=== PATIENT | female | born 2000 | race Caucasian/White ===

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

== ENCOUNTER 2022-07-12 14:27 | Emergency (ER) | payer MEDICAID ==
[~2022-07-12] VITALS: Ht 175.3 cm; Wt 92.3 kg
[2022-07-12 15:00] VITALS: BP 141/71
[2022-07-12 16:35] LABS: Urine Bacteria NONE SEEN /hpf (None Seen); Urine Blood 3+ /uL (Negative); Urine WBC 934 /hpf (0 - 5); Urine WBC Clumps PRESENT /hpf (None Seen)
[2022-07-12] MEDS ORDERED: PHENAZOPYRIDINE HCL 100 MG TAB PO ONE (16:45)
[2022-07-12] MEDS ORDERED: cefTRIAXone SOD 1,000 MG VL IM ONE (16:45)
[2022-07-12] MEDS ORDERED: PHEN200T16 PO (16:49)
[2022-07-12] MEDS ORDERED: BACDST PO (16:49)
== END 2022-07-12 17:18 | disposition home or self-care (01) ==
LOC: ER 14:27
DX: N39.0 Urinary tract infection, site not specified (principal); Z79.899 Other long term (current) drug therapy
CPT/HCPCS: 81001; 81025; 96372; 99283; J0696

== ENCOUNTER 2023-01-07 10:20 | Emergency (ER) | payer MEDICAID ==
[~2023-01-07] VITALS: Ht 170.2 cm; Wt 72.7 kg
[~2023-01-07 10:20] MED LIST changes: +BACDST PO; +PHEN-922 PO
[2023-01-07 10:32] VITALS: PULSE 68; RESP 12; TEMP 98; O2SAT 98
[2023-01-07 11:01] LABS: Basophils # (auto) 0 10 ^3/uL (0-0.2); Basophils % (auto) 0.3 % (0.0-2.0); Eosinophils # (auto) 0 10 ^3/uL (0-0.8); Hematocrit 46.6 % (36.0-46.0); Hemoglobin 15.3 g/dL (12.2-16.2); Lymphocytes # (auto) 1.2 10 ^3/uL (0.4-5.4); Mean Corpuscular Hemoglobin 30.1 pg (28.0-32.0); Mean Corpuscular Volume 91.4 fL (80.0-100.0); Monocytes # (auto) 0.4 10 ^3/uL (0-1.3); Monocytes % (auto) 9.2 % (0.0-12.0); Neutrophils # (auto) 2.8 10 ^3/uL (1.6-8.6); Neutrophils % (auto) 63.5 % (37.0-80.0); Nucleated Red Blood Cells % 0.1 %; Red Blood Cells 5.09 10^6/uL (4.0-5.20); Red Cell Distribution Width 12.5 % (11.8-14.3); White Blood Cell 4.4 10^3/uL (4.4-10.8)
[2023-01-07 11:21] LABS: Albumin 4.2 g/dL (3.4-5.0); Calcium 9.1 mg/dL (8.5-10.1); Potassium 4.3 mmol/L (3.5-5.1)
[2023-01-07 11:26] LABS: BUN/Creatinine Ratio 9.5 (10.0-20.0); Bilirubin, Total 0.7 mg/dL (0.2-1.0); Total Protein 7.1 g/dL (6.4-8.2)
[2023-01-07 11:46] LABS: Urine Bacteria FEW /hpf (None Seen); Urine Blood Negative /uL (Negative); Urine Mucus FEW (None Seen); Urine Specific Gravity 1.008 (1.001-1.035); Urine WBC 10 /hpf (0 - 5)
[2023-01-07 11:55] LABS: Alcohol, Urine < 3.0 mg/dL (0-10); Amphetamine Screen, Urine NEGATIVE (NEGATIVE); Barbiturate Scree,Urine NEGATIVE (NEGATIVE); Benzodiazephine Screen, Urine NEGATIVE (NEGATIVE); Cannabinoid Screen, Urine POSITIVE (NEGATIVE); Cocaine Screen, Urine NEGATIVE (NEGATIVE)
[2023-01-07 12:03] LABS: Opiate Scree,Urine NEGATIVE (NEGATIVE); Phencyclidine Screen, Urine NEGATIVE (NEGATIVE)
[2023-01-07] MEDS ORDERED: SODIUM CHLORIDE 0.9% 1,000 ML IV ONE (12:45)
[2023-01-07] MEDS ORDERED: cefTRIAXone 1GM/50ML D5W 50 ML IV ONE (13:30)
[2023-01-07 14:30] VITALS: BP 119/77; PULSE 76; RESP 15; O2SAT 99
== END 2023-01-07 14:34 | disposition home or self-care (01) ==
LOC: EDBD 10:20 → EDUNIT# 10:20 → ER 10:20
DX: R56.9 Unspecified convulsions (principal); F41.9 Anxiety disorder, unspecified
CPT/HCPCS: 36415; 70450; 80053; 80307; 81001; 85025; 96361; 96365; 99285; J0696; J7030

== ENCOUNTER 2025-01-26 20:22 | Emergency (ER) | payer MEDICAID ==
[~2025-01-26] VITALS: Ht 175.3 cm; Wt 90.6 kg
[~2025-01-26 20:22] MED LIST changes: +ZOFR4T PO
--- NOTE | 2025-01-26 21:23 | ED.PDOC ---
GI ASSESSMENT HPI Comments 44-year-old female with a history of epilepsy, seizures, and marijuana use presents to the ED with a chief complaint of black colored stool with the associated abdominal cramping, and diarrhea. She notes that her symptoms started this morning after she noticed a dark color stool after having a bowel movement this morning, patient knows that she is also currently on her menstrual cycle. Patient also notes of having 5 seizure within 2 hours a couple of weeks ago, and being noncompliant with her epilepsy medications. Denies any headache, abdominal pain, flank pain, chest pain, nausea, vomiting, dysuria, hematuria, or any other associated symptoms, modifiers with this time. PHYSICAL EXAM: General: Awake, alert and oriented. Mild distress. Skin: Skin in warm, dry and intact. Appropriate color for ethnicity. HEENT: The head is normocephalic and atraumatic. Conjunctivae are clear without exudates or hemorrhage. Sclera is non-icteric. EOM are intact. No signs of nystagmus. Eyelids are normal in appearance without swelling or lesions. Oral mucosa is pink and moist Neck: The neck is supple with normal range of motion. No JVD. Cardiac: Heart rate and rhythm are normal. No murmurs, gallops, or rubs are auscultated. Respiratory: No signs of respiratory distress. Lung sounds are clear in all lobes bilaterally without rales, rhonchi, or wheezes. Abdominal: Abdomen is soft, non-tender without distention, guarding or rigidity. Bowel sounds are present and normoactive in all four quadrants. Extremities: Upper and lower extremities are atraumatic in appearance without deformity or edema. Neurological: The patient is awake, alert and oriented to person, place, and time with normal speech. Speech is clear. There is no facial asymmetry. Psychiatric: Appropriate mood and affect. Good judgement and insight. REVIEW OF SYSTEMS: General: No fever, no chills, or fatigue HEENT: No sore throat, no earache, no congestion, no neck pain. Cardiac: No chest pain. No palpitations. Lungs: No shortness of breath, no cough. GI: No nausea, no vomiting, no diarrhea, no constipation, no abdominal pain, black colored stool : No dysuria, frequency, or urgency. No hematuria. Musculoskeletal: No joint pain , no joint swelling, no extremity edema. Skin: No rash, no itching. Neuro: No headache, no dizziness, no weakness Chief Complaint: GI Bleed Time Seen by MD: 21:20 Primary Care Provider: SHAWN Hadley Notes: Nurses Notes, Medications, Allergies Allergies: Coded Allergies: NO KNOWN ALLERGIES (Unverified , 12/28/12) Home Meds Active Scripts Ondansetron Odt 4MG Tab (ZOFRAN PO) 4 Mg Tb, 4 MG PO Q6HP PRN, #20 TAB ODT TAB-DISSOLVE IN MOUTH, THEN SWALLOW Prov:SHERRI PRECIADO PAC 03/01/24 Phenazopyridine HCl (Phenazopyridine Hydrochlo) 200 Mg Tab, 200 MG PO TID, #6 TAB Prov:CHRISTINA LI 07/12/22 Sulfamethoxazole W/Trimethopri (Bactrim Ds Tablet) 1 Tab Tb, 1 TAB PO BID, #20 TAB Prov:CHRISTINA LI 07/12/22 Reported Medications Acetaminophen (Tylenol) 325 Mg Rc 12/28/12 Albuterol Sulfate (Ventolin Hfa) Aer 12/28/12 Information Source: Patient Mode of Arrival: Ambulatory Timing: Hours Duration: Since onset, Hours Prehospital treatment: None Quality: Aching Vomitus: None Stool: Black Severity: Mild Recent: None Recent Hx of: None Pain Location: None Modifying Factors: Nothing Associated sign and symptoms: Blood in Stool Past Medical History PAST MEDICAL HISTORY: Seizures Surgical History: Denies all surgeries SERVICE ORDER EXPEDITER History: No Pertinent SERVICE ORDER EXPEDITER History Family History Family History: Family hx of HTN, Family hx of lung barry Social History Smoker: Non-Smoker, Other Alcohol: Occasionally Drugs: Marijuana Lives In: Home Was a procedure done? Was a procedure done?: No GI differential Dx Differential Diagnosis: Appendicitis, Bowel Obstruction, Cholangitis, Cholecystitis, Constipation, Ectopic , Gastritis/PUD, Gastroenteritis, GI hemorrhage, Pancreatitis, Trauma intraabdominal, Urinary Obstruction, UTI, Urolithiasis, Dehydration, Drug toxicity, Electrolyte Imbalance, Food Poisoning, , Stress Ulcer, Kidney Stone X-Ray, Labs, Meds, VS Vital Signs Date Time Temp Pulse Resp B/P (MAP) Pulse Ox O2 Delivery O2 Flow Rate FiO2 01/27/25 00:17 58 16 100 Room Air 01/27/25 00:07 98.1 58 16 116/72 (87) 100 98.1 01/26/25 20:25 98.1 112 20 125/80 97 98.1 Lab Test 01/26/25 21:37 Range/Units White Blood Count 6.8 4.4-10.8 10^3/uL Red Blood Count 4.47 4.0-5.20 10^6/uL Hemoglobin 13.7 12.2-16.2 g/dL Hematocrit 39.7 36.0-46.0 % Mean Corpuscular Volume 88.7 80.0-100.0 fL Mean Corpuscular Hemoglobin 30.5 28.0-32.0 pg Mean Corpuscular Hemoglobin Concent 34.4 32.0-36.0 g/dL Red Cell Distribution Width 12.3 11.8-14.3 % Platelet Count 287 140-450 10^3/uL Mean Platelet Volume 8.6 6.9-10.8 fL Neutrophils (%) (Auto) 58.1 37.0-80.0 % Lymphocytes (%) (Auto) 30.5 10.0-50.0 % Monocytes (%) (Auto) 9.3 0.0-12.0 % Eosinophils (%) (Auto) 1.7 0.0-7.0 % Basophils (%) (Auto) 0.4 0.0-2.0 % Neutrophils # (Auto) 4.0 1.6-8.6 10 ^3/uL Lymphocytes # (Auto) 2.1 0.4-5.4 10 ^3/uL Monocytes # (Auto) 0.6 0-1.3 10 ^3/uL Eosinophils # (Auto) 0.1 0-0.8 10 ^3/uL Basophils # (Auto) 0 0-0.2 10 ^3/uL Nucleated Red Blood Cells 0.1 % Prothrombin Time 11.2 9.3-11.8 sec Prothrombin Time INR 1.06 0.9-1.15 Sodium Level 144 136-145 mmol/L Potassium Level 4.0 3.5-5.1 mmol/L Chloride Level 109 H 98-107 mmol/L Carbon Dioxide Level 26 20-31 mmol/L Anion Gap 9 5-15 Blood Urea Nitrogen 8 L 9-23 mg/dL Creatinine 0.85 0.550-1.02 mg/dL Glomerular Filtration Rate Calc 99 >90 mL/min BUN/Creatinine Ratio 9.4 L 10.0-20.0 Serum Glucose 86 74-106 mg/dL Calcium Level 9.3 8.7-10.4 mg/dL Time of 1ST Reevaluation: 21:50 Reevaluation 1ST: Unchanged Patient Education/Counseling: Diagnosis, Treatment, Need For Follow Up Family Education/Counseling: No Family Present SEPSIS Sepsis Screen Date sepsis recognized/suspect: Jan 26, 2025 Time Sepsis recognized/suspect: 2028 Recent Procedure: No On Antibiotic Therapy: No Respiratory Rate >20: No Heart Rate >90: No Temp<36 C (96.8 F) or >38.3 C: No SBP <90 or MAP <65 mmHG: No New Acute Mental Status Change: No Is the patient on CPAP, BIPAP,: No Physician Orders Stool Occult Blood (01/26/25 21:25) Vital Signs Date Time Temp Pulse Resp B/P (MAP) Pulse Ox O2 Delivery O2 Flow Rate FiO2 01/27/25 00:17 58 16 100 Room Air 01/27/25 00:07 98.1 58 16 116/72 (87) 100 98.1 01/26/25 20:25 98.1 112 20 125/80 97 98.1 Laboratory Tests Test 01/26/25 21:37 White Blood Count 6.8 10^3/uL (4.4-10.8) Departure 1 Departure Time of Disposition: 23:52 Impression: Primary Impression: Stool color black Additional Impression: Diarrhea Disposition: 01 HOME / SELF CARE / HOMELESS Condition: Stable Additional Instructions: ED DISCHARGE INSTRUCTIONS Instructions: Please read all instructions provided in this packet carefully. Although you have been discharged from the Emergency Department, this does not mean that you have a "clean bill of health". No definitive diagnosis for your symptoms has been made today. It is possible that you are in the process of developing a serious illness. This is why you must return to the ED without fail if any new or worsening symptoms (especially if your symptoms include bright red blood in the stool, continued black colored stool, chest pain, trouble breathing, abdominal pain, fever, headache, confusion, trouble seeing, or trouble walking) It is also very important that you see a primary care provider (PCP) within the next 3-5 days to follow up. If you are unable to get an appointment, return to the ED for re-evaluation. It is very important that you take seizure medication as prescribed. Continued untreated seizures can lead to long-term serious illness. Comments 24-year-old female with black colored stool. Abdominal exam is benign. Patient is well-appearing, nontoxic. Vital signs stable. Diagnostic results reviewed and are not urgently actionable. Patient is felt stable for discharge home. Patient advised to follow up with primary care provider promptly and return to the emergency department with any new, worsening or concerning symptoms. Critical Care Note Critical Care Time?: No Stability Stability form required: No Heart Score Heart Score: Heart Score Response (Comments) Value History N/A 0 EKG N/A 0 Age N/A 0 Risk Factors N/A 0 Troponin N/A 0 Total 0 I personally scribed for MARY ARREGUIN MD ([email or web address]) on 01/26/25 at 21:23. Electronically submitted by Lucas Laws ([email or web address]). MARY ARREGUIN MD Jan 26, 2025 21:23
[2025-01-26 22:03] LABS: Hematocrit 39.7 % (36.0-46.0); Hemoglobin 13.7 g/dL (12.2-16.2); Mean Corpuscular Hemoglobin 30.5 pg (28.0-32.0); Mean Corpuscular Volume 88.7 fL (80.0-100.0); Nucleated Red Blood Cells % 0.1 %
[2025-01-26 22:08] LABS: Potassium 4.0 mmol/L (3.5-5.1); Sodium 144 mmol/L (136-145)
[2025-01-26 22:09] LABS: Anion Gap 9 (5-15); Calcium 9.3 mg/dL (8.7-10.4); Carbon Dioxide 26 mmol/L (20-31)
[2025-01-26 22:14] LABS: BUN/Creatinine Ratio 9.4 (10.0-20.0); Glucose 86 mg/dL (74-106); INR 1.06 (0.9-1.15); Prothrombin Time 11.2 sec (9.3-11.8)
[2025-01-26 22:25] LABS: Blood Urea Nitrogen 8 mg/dL (9-23); Chloride 109 mmol/L (98-107)
[2025-01-27 00:07] VITALS: BP 116/72; TEMP 98.1
[2025-01-27 00:17] VITALS: PULSE 58; RESP 16; O2SAT 100
== END 2025-01-27 00:07 | disposition home or self-care (01) ==
LOC: ER 20:22
DX: K92.1 Melena (principal); R19.7 Diarrhea, unspecified; F12.90 Cannabis use, unspecified, uncomplicated; F10.90 Alcohol use, unspecified, uncomplicated; Z79.899 Other long term (current) drug therapy; Y90.9 Presence of alcohol in blood, level not specified
CPT/HCPCS: 36415; 80048; 85025; 85610

== ENCOUNTER 2025-02-11 15:10 | Inpatient (IN) | payer MEDICAID ==
[~2025-02-11] VITALS: Ht 175.3 cm; Wt 94.5 kg
--- NOTE | 2025-02-11 15:25 | ED.PDOC ---
HPI (NEURO) HPI Comments HPI: 24y F who presents to the ED via EMS for chief complaint of seizure like activity - EMS states they were called to the scene after pt had witnessed seizure by mother which lasted approx 1and 1/2 minutes at 13:40 this afternoon with noted tonic clonic activity - pt mother called EMS after had headache and associated lower back pain - EMS arrived on scene and pt was alert and oriented and able to answer questions and denies any post- ictal state - pt did have noted oral trauma with bleeding controlled and otherwise stable vitals and brought to the ED for further evaluation - pt in the ED, states she has history of seizure disorder and was on Keppra but states she has not been taking it for the past 3 months - pt states she was seen by neurologist and 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 Patient had an EEG that was nondiagnostic. Mother at bedside helping with the history. She said that it is usually stress induced Past Medical History: seizure disorder Past Surgical History: denies Social History: Denies ETOH, smoking, and drug use. Medications: Keppra Allergies: nkda HPI: Poor Historian. REVIEW OF SYSTEMS: CONSTITUTIONAL: Denies acute: fever, diaphoresis, chills, generalized weakness. HEAD: Denies acute: headache, photophobia Eyes: Denies acute: Double vision, vision loss, eye pain, eye discharge. EARS: Denies acute: tinnitus, hearing loss, ear discharge, ear pain, THROAT: Denies acute: sore throat, swelling, difficulty swallowing , pain with swallowing, change in voice. NECK: Denies acute: neck pain, neck swelling, stiff neck. HEART: Denies acute : chest pain, palpitations, LUNGS: Denies acute: SOB, wheezing, cough, hemoptysis ABDOMEN: Denies acute: abdominal pain, Nausea, Vomiting, diarrhea, melena , hematemesis, hematochezia SKIN: Denies acute: rash, redness, lesions, itchiness. EXTREMITIES: Denies acute: calf pain, numbness, tingling, weakness, denies pain in extremity. Denies acute: Low back pain. Neuro: Denies acute: focal neurological deficit, motor or sensory focal neurological deficit, confusion, dizziness, change in mental status, loss of bowel or bladder function, cauda equina like symptoms. : Denies acute: dysuria, hematuria, flank pain, increase in urinary frequency. PSYCH: Denies acute: hallucination, suicidal ideation, homicidal ideation. FEMALE: Denies acute: abnormal vaginal bleeding, foul odor, unusual discharge. PHYSICAL EXAM: General: ------mild--acute distress, awake and alert. Head: normocephalic, atraumatic. Neck: supple, trachea is midline, no swelling. Throat: Normal phonation. Noted tongue bruising. No active bleeding. Eyes:, no erythema, no purulent discharge, no proptosis, no icterus. Heart: regular rate, regular rhythm, no significant murmur appreciated. Lungs: no apparent respiratory distress, Able to speak in full sentences. No wheezing, no rhonchi, no crackles. No stridors Clear to auscultation bilaterally. Abdomen: non tender to palpation, non distended, soft, no guarding, no rebound, + bowel sounds. Neuro: Awake, Alert, oriented to name, self, situation, follows commands GCS=15. Speech is normal. Skin: no petechia, no purpura, no cyanosis, non-pale, not jaundice. Lower extremities: --no - Pitting edema no deformity, no focal swelling, no calf TTP. Makes eye contact. moves all four extremities. Face: no apparent facial droop. PERRLA, EOM-I CN 2-12 are grossly intact, No nystagmus. No nuchal rigidity, Kernig's sign, Brudzinski's sign, no meningeal signs. ED COURSE: Patient had a witnessed seizure episode here. She was given 2 mg of Ativan. No fall or trauma or injury. DISCLAIMER: This medical document was created using an electronic medical record system with voice recognition software and computerized dictation system. Although this document has been carefully reviewed, there might still be some phonetic and typographical errors. Occasional wrong-word or "sound-alike" substitutions may have occurred due to the inherent limitations of voice recognition software. These areas are purely typographical due to imperfections of the software programs and do not reflect any compromise in the patient's medical care. Please read the chart carefully and recognize, using context, where these substitutions have occurred. Time Seen by MD: 16:00 Primary Care Provider: SHAWN Hadley Notes: Medications, Allergies Information Source: Patient, Relative (Mother), Emergency Med Personnel Mode of Arrival: EMS Past Medical History PAST MEDICAL HISTORY: Seizures Surgical History: Denies all surgeries BARREL CENTERER History: No Pertinent BARREL CENTERER History Family History Family History: Family hx of HTN, Family hx of lung barry Social History Smoker: Non-Smoker, Other Alcohol: Occasionally Drugs: Marijuana Lives In: Home Was a procedure done? Was a procedure done?: No Differential Diagnosis (SZ) Seizure: Other (SEIZUREDDX include not limited to CVA, cerebellar ischemia/infarct, carotid stenosis, vertebral/carotid artery dissection,, vertebrobasillary insufficiency, Intracranial mass/infection/bleed, encephalopathy, elctrolyte abnormality, thyroid disease, multiple sclerosis, hypoglycemia, drug toxicity, cardiac arrhythmia, sub-theraputic anti-convulsion medications, known seizure disorder, pseudo-seizure.) X-Ray, Labs, Meds, VS Vital Signs Date Time Temp Pulse Resp B/P (MAP) Pulse Ox O2 Delivery O2 Flow Rate FiO2 02/11/25 15:10 98.4 106 18 102/56 94 98.4 Lab Test 02/11/25 16:27 02/11/25 15:30 Range/Units Troponin I High Sensitivity 7 6 </=34 ng/L White Blood Count 13.3 H 4.4-10.8 10^3/uL Red Blood Count 5.17 4.0-5.20 10^6/uL Hemoglobin 15.5 12.2-16.2 g/dL Hematocrit 45.5 36.0-46.0 % Mean Corpuscular Volume 88.1 80.0-100.0 fL Mean Corpuscular Hemoglobin 30.0 28.0-32.0 pg Mean Corpuscular Hemoglobin Concent 34.1 32.0-36.0 g/dL Red Cell Distribution Width 12.4 11.8-14.3 % Platelet Count 272 140-450 10^3/uL Mean Platelet Volume 9.0 6.9-10.8 fL Neutrophils (%) (Auto) 86.4 H 37.0-80.0 % Lymphocytes (%) (Auto) 7.8 L 10.0-50.0 % Monocytes (%) (Auto) 5.6 0.0-12.0 % Eosinophils (%) (Auto) 0.1 0.0-7.0 % Basophils (%) (Auto) 0.1 0.0-2.0 % Neutrophils # (Auto) 11.5 H 1.6-8.6 10 ^3/uL Lymphocytes # (Auto) 1.0 0.4-5.4 10 ^3/uL Monocytes # (Auto) 0.8 0-1.3 10 ^3/uL Eosinophils # (Auto) 0 0-0.8 10 ^3/uL Basophils # (Auto) 0 0-0.2 10 ^3/uL Nucleated Red Blood Cells 0.0 % Sodium Level 141 136-145 mmol/L Potassium Level 4.4 3.5-5.1 mmol/L Chloride Level 107 98-107 mmol/L Carbon Dioxide Level 25 20-31 mmol/L Anion Gap 9 5-15 Blood Urea Nitrogen 9 9-23 mg/dL Creatinine 0.72 0.550-1.02 mg/dL Glomerular Filtration Rate Calc 120 >90 mL/min BUN/Creatinine Ratio 12.5 10.0-20.0 Serum Glucose 96 74-106 mg/dL Lactic Acid Level 1.2 0.4-2.0 mmol/L Calcium Level 9.3 8.7-10.4 mg/dL Magnesium Level 2.0 1.6-2.6 mg/dL Total Bilirubin 0.6 0.2-1.0 mg/dL Aspartate Amino Transferase (AST) 30 13-40 U/L Alanine Aminotransferase (ALT) 41 H 7-40 U/L Alkaline Phosphatase 69 46-116 U/L Creatine Kinase 56 34-145 U/L Total Protein 6.5 5.7-8.2 g/dL Albumin 4.2 3.2-4.8 g/dL [facility] [id number] [facility] [address] Ph: [phone] DIAGNOSTIC IMAGING Diagnostic Imaging Report : [id number] Signed PATIENT: ULISSES FERRER ACCT: [id number] UNIT: [id number] : 2000 LOC: ER ROOM / BED: / AGE / SEX: 24 / F ADM STATUS: REG ER SERVICE 1524 ORDERING PHYSICIAN: CATHERINE HUNG DO PROCEDURE(s): CXRP - CHEST PORTABLE REASON: SEIZURE ORDER NUMBER(s): [id number], ACCESSION NUMBER(s): [id number] EXAM DESCRIPTION: Chest 1 View CLINICAL HISTORY: SEIZURE COMPARISON: None FINDINGS and IMPRESSION: Lines, tubes, and support devices: None. Lungs / Pleura: Hazy bilateral airspace opacities in the mid to lower lungs. No pleural effusion. No pneumothorax. Mediastinum: Normal cardiomediastinal silhouette. Osseous structures / Soft tissues: No acute findings. ATED BY: MURTAZA WITT MD DICTATED DATE/TIME: 02/11/251623 SIGNED BY: MURTAZA WITT MD SIGNED DATE/TIME: 02/11/254 CC: Time of 1ST Reevaluation: 00:00 Reevaluation 1ST: Unchanged Patient Education/Counseling: Diagnosis, Treatment Family Education/Counseling: Other Comments MDM: patient presented with the above HPI.---seizure---workup was initiated. patient was found with the above mentioned diagnosis. No history of fall or trauma or injury the following medications were ordered: please refer to order lists of meds and tests obtained by myself Dr. Hung. Patient ED course and VS have been stabilized. Patient has been reassessed in the ED and remained in a stable condition. Pertinent incidental findings were discussed with the patient and/or family. Patient/family voices understanding and is agreeable with plan. Patient has been observed in the ED adequate length of time to insure improvement/stability. Escalation of care considered: Consideration of escalation to observation or admission Patient was given Ativan and Keppra and fluids Neurology was consulted. Patient was ADMITTED to the medicine team for further evaluation and treatment of their presentation. All the reports of any imaging studies that were ordered by myself were reviewed by myself. Departure 1 Departure Time of Disposition: 16:43 Impression: Primary Impression: Seizure Disposition: ADMITTED INPATIENT Admit to: Tele Condition: Guarded e-Prescriptions Levetiracetam (KEPPRA TABLET) 500 Mg Tb 500 MG PO BID for 30 Days, #60 TAB Prov: MORGAN TELLO MD 02/13/25 Discharged With: Self, Relative Critical Care Note Critical Care Time?: Yes (35 min-critical care time only) I personally scribed for CATHERINE HUNG DO ([email or web address]) on 02/11/25 at 15:25. El ectronically submitted by Leonie Gomez ([facility] I personally scribed for CATHERINE HUNG DO ([email or web address]) on 02/11/25 at 16:18. Electronically submitted by Leonie Gomez ([facility] I personally scribed for CATHERINE HUNG DO ([email or web address]) on 02/11/25 at 18:39. Electronically submitted by Leonie Gomez ([facility] [place] I personally scribed for CATHERINE HUNG DO ([email or web address]) on 02/11/25 at 21:37. Electronically submitted by Leonie Gomez ([facility]). CATHERINE HUNG DO Feb 11, 2025 15:25
[2025-02-11] MEDS: levETIRAcetam 1000 mg/100ml 100 ML IV ONE (15:30)
[2025-02-11 16:03] LABS: Albumin 4.2 g/dL (3.2-4.8); Alkaline Phosphatase 69 U/L (46-116); Anion Gap 9 (5-15); BUN/Creatinine Ratio 12.5 (10.0-20.0); Calcium 9.3 mg/dL (8.7-10.4); Carbon Dioxide 25 mmol/L (20-31); Glucose 96 mg/dL (74-106); Magnesium 2.0 mg/dL (1.6-2.6); Potassium 4.4 mmol/L (3.5-5.1); Sodium 141 mmol/L (136-145); Total Protein 6.5 g/dL (5.7-8.2)
[2025-02-11 16:04] LABS: Bilirubin, Total 0.6 mg/dL (0.2-1.0)
[2025-02-11 16:12] LABS: Blood Urea Nitrogen 9 mg/dL (9-23); Chloride 107 mmol/L (98-107)
[2025-02-11 16:13] LABS: Alanine Aminotransferase 41 U/L (7-40)
--- NOTE | 2025-02-11 16:26 | DVH ---
EXAM DESCRIPTION: Chest 1 View CLINICAL HISTORY: SEIZURE COMPARISON: None FINDINGS and IMPRESSION: Lines, tubes, and support devices: None. Lungs / Pleura: Hazy bilateral airspace opacities in the mid to lower lungs. No pleural effusion. No pneumothorax. Mediastinum: Normal cardiomediastinal silhouette. Osseous structures / Soft tissues: No acute findings.
[2025-02-11 16:52] LABS: Hematocrit 45.5 % (36.0-46.0); Hemoglobin 15.5 g/dL (12.2-16.2); Mean Corpuscular Hemoglobin 30.0 pg (28.0-32.0); Mean Corpuscular Volume 88.1 fL (80.0-100.0); Nucleated Red Blood Cells % 0.0 %
--- NOTE | 2025-02-11 17:05 | DVHHP2 ---
History of Present Illness Reason for Visit: Seizure disorder History of Present Illness Teresa Pruitt is a 24-year-old female with past medical history of seizures who presents to the ED by EMS after a witnessed seizure by mother. Patient's mother reports that the seizure lasted between 1-1-1/2 minutes that occurred around 13 40 this afternoon. Initially it started with headache and lower back pain. Reports also shows that patient has not been taking her Keppra for the last 3 months. Patient was also seen by a neurologist recently and diagnosed with pseudoseizures. Patient denies any recent trauma or injury, recent sick contacts, recent ingestion of spoiled food, recent travels, chest pain, shortness of breath, fever, chills, lightheadedness, weakness, dizziness, abdominal pain, nausea, vomiting, diarrhea, or urinary symptoms. Patient reports that she was not taking her medications just cause. She also reports that she uses marijuana. 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 moist/pink Respiratory: Normal air movement Cardiovascular: Regular rate, Normal S1, Normal S2, No murmurs Abdominal: Normal bowel sounds, Soft Extremities: Normal pulses Skin: No significant lesion Neuro: Normal speech, Normal tone, Sensation intact Psych/Mental Status: Mental status NL Labs/Xrays Labs Test 02/11/25 16:27 02/11/25 15:30 Range/Units White Blood Count 13.3 H 4.4-10.8 10^3/uL Red Blood Count 5.17 4.0-5.20 10^6/uL Hemoglobin 15.5 12.2-16.2 g/dL Hematocrit 45.5 36.0-46.0 % Mean Corpuscular Volume 88.1 80.0-100.0 fL Mean Corpuscular Hemoglobin 30.0 28.0-32.0 pg Mean Corpuscular Hemoglobin Concent 34.1 32.0-36.0 g/dL Red Cell Distribution Width 12.4 11.8-14.3 % Platelet Count 272 140-450 10^3/uL Mean Platelet Volume 9.0 6.9-10.8 fL Neutrophils (%) (Auto) 86.4 H 37.0-80.0 % Lymphocytes (%) (Auto) 7.8 L 10.0-50.0 % Monocytes (%) (Auto) 5.6 0.0-12.0 % Eosinophils (%) (Auto) 0.1 0.0-7.0 % Basophils (%) (Auto) 0.1 0.0-2.0 % Neutrophils # (Auto) 11.5 H 1.6-8.6 10 ^3/uL Lymphocytes # (Auto) 1.0 0.4-5.4 10 ^3/uL Monocytes # (Auto) 0.8 0-1.3 10 ^3/uL Eosinophils # (Auto) 0 0-0.8 10 ^3/uL Basophils # (Auto) 0 0-0.2 10 ^3/uL Nucleated Red Blood Cells 0.0 % Sodium Level 141 136-145 mmol/L Potassium Level 4.4 3.5-5.1 mmol/L Chloride Level 107 98-107 mmol/L Carbon Dioxide Level 25 20-31 mmol/L Anion Gap 9 5-15 Blood Urea Nitrogen 9 9-23 mg/dL Creatinine 0.72 0.550-1.02 mg/dL Glomerular Filtration Rate Calc 120 >90 mL/min BUN/Creatinine Ratio 12.5 10.0-20.0 Serum Glucose 96 74-106 mg/dL Lactic Acid Level 1.2 0.4-2.0 mmol/L Calcium Level 9.3 8.7-10.4 mg/dL Magnesium Level 2.0 1.6-2.6 mg/dL Total Bilirubin 0.6 0.2-1.0 mg/dL Aspartate Amino Transferase (AST) 30 13-40 U/L Alanine Aminotransferase (ALT) 41 H 7-40 U/L Alkaline Phosphatase 69 46-116 U/L Total Protein 6.5 5.7-8.2 g/dL Albumin 4.2 3.2-4.8 g/dL EXAM DESCRIPTION: Chest 1 View CLINICAL HISTORY: SEIZURE COMPARISON: None FINDINGS and IMPRESSION: Lines, tubes, and support devices: None. Lungs / Pleura: Hazy bilateral airspace opacities in the mid to lower lungs. No pleural effusion. No pneumothorax. Mediastinum: Normal cardiomediastinal silhouette. Osseous structures / Soft tissues: No acute findings. SEPSIS Sepsis Screen Date sepsis recognized/suspect: Feb 11, 2025 Time Sepsis recognized/suspect: 1510 Recent Procedure: No On Antibiotic Therapy: No Respiratory Rate >20: No Heart Rate >90: Yes Temp<36 C (96.8 F) or >38.3 C: No SBP <90 or MAP <65 mmHG: No New Acute Mental Status Change: No Is the patient on CPAP, BIPAP,: No Physician Orders Food Service Cashier (02/11/25 ) Seizure Precautions (02/11/25 ) Covid19 Antigen Trisha (02/11/25 ) Urinalysis (02/11/25 15:24) Chest Portable (02/11/25 15:24) Electrocardigram (02/11/25 15:24) Troponin-I Hs (02/11/25 16:24) Troponin-I Hs (02/11/25 18:24) Vital Signs Date Time Temp Pulse Resp B/P (MAP) Pulse Ox O2 Delivery O2 Flow Rate FiO2 02/11/25 15:10 98.4 106 18 102/56 94 98.4 Laboratory Tests Test 02/11/25 15:30 Lactic Acid Level 1.2 mmol/L (0.4-2.0) White Blood Count 13.3 10^3/uL (4.4-10.8) H Assessment/Plan Assessment/Plan Assessment Seizure disorder Intractable low back pain with headache Marijuana use Leukocytosis likely reactive Medication noncompliance Acute hypoxic respiratory failure on supplementary oxygen History of seizures Plan Admit to med surge Supplementary O2 Keppra Seizure 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 Home medications reconciled DVT prophylaxis-not indicated patient ambulating PUD prophylaxis-not indicated no history of GERD or GI bleed Discussed plan of care with patient and nurse Neuro consult Counseled patient on cessation of marijuana use Counseled patient on medication adherence 98032 Preventive counseling healthy eating habits, physical activity, and regular checkups Plan discussed with: Patient Date of Service: Feb 11, 2025 Billing Provider: YOLANDA SARAVIA Common Visit Codes: [id number] INP/OBS CARE (HIGH) Secondary Visit Codes: [id number] COUNSELING IND, [id number] CHNG SMOKING >10MIN YOLANDA SARAVIA [facility] Feb 11, 2025 17:04
[2025-02-11] MEDS: LORazepam 2MG/ML-1ML VIAL IM ONE (17:08)
[2025-02-11] MEDS: LORazepam 2MG/ML-1ML VIAL ONE (17:09)
[2025-02-11] MEDS ORDERED: ONDANSETRON HCL 4 MG/2 ML VIAL IV PRN (17:15)
[2025-02-11] MEDS: SODIUM CHLORIDE 0.9% 1,000 ML IV ONE (17:42)
[2025-02-11 18:11] VITALS: PULSE 111; RESP 19; O2SAT 99
[2025-02-11 18:48] LABS: COVID19 ANTIGEN SOFIA FIA NEGATIVE (NEGATIVE)
[2025-02-11 20:09] LABS: Urine Amorphous Crystal FEW /hpf (None Seen); Urine Protein, UAD Negative (Negative)
[2025-02-11] MEDS ORDERED: levETIRAcetam 500 mg/100ml 100 ML IV SCH (22:00)
[2025-02-11] MEDS: levETIRAcetam 1000 mg/100ml 100 ML IV SCH (22:17)
--- NOTE | 2025-02-11 22:31 | DVHINCON2 ---
Date of service: Feb 11, [address] Rendon Reason for Consultation Seizure History of Present Illness Ms. Pruitt is a 33 years old right-handed female with a history of seizure, anxiety, she was brought to the [facility] on 02/11/2025 with a chief complaint of seizure activity. At this time, she is alert, fully oriented, she provided the following history She relates that she was brought to the because she had a seizure, she presumed it was a pseudo seizure, though she has complete amnesia about seizure activity, he was reports that she had another pseudo-seizure in the emergency room, which was confirmed with her nurse note (RN note 02/11/25 16:45: Noted to have whole body stiffness, pale, snoring, drooling, and diaphoretic. Lasting 1-2 minutes. Placed on non-rebreather. MD notified. Verbal orderes received. Read back and verified.) She relates she did a lot of work at home on 02/10/2025, and she was very upset and had argument with her mom before the seizure attack She has a seizure disorder since 2022, she has company amnesia about her seizure activities, she was said, and video captured in her family members cell phone showed sleepiness and shaking all over the body, she has had biting to her tongue during the seizure activity, she has seizure about once monthly She saw Dr. Bianchi, a local neurologist, and she was on Keppra one tablet daily, he does not know if the medication helped her seizure, but she lost in follow-up for more than one year Urinalysis, 02/11/2025: Unremarkable WBC/HB/PLT/MCV, 02/11/2025: 13.3/15.5/272/88.1 CMP, 02/11/2025: Unremarkable Lactic acid, 02/11/2025: 1.2 CPK, 02/11/2025: 56 Past Medical History Seizure, anxiety Past Surgical History None Family History Father had alcohol withdrawal seizure Social History She uses marijuana, but denies a history of drug, alcohol abuse. She does not drive Allergies: Coded Allergies: NO KNOWN ALLERGIES (Unverified , 12/28/12) Home Meds Active Scripts Ondansetron Odt 4MG Tab (ZOFRAN PO) 4 Mg Tb, 4 MG PO Q6HP PRN, #20 TAB ODT TAB-DISSOLVE IN MOUTH, THEN SWALLOW Prov:SHERRI PRECIADO PAC 03/01/24 Phenazopyridine HCl (Phenazopyridine Hydrochlo) 200 Mg Tab, 200 MG PO TID, #6 TAB Prov:CHRISTINA LI 07/12/22 Sulfamethoxazole W/Trimethopri (Bactrim Ds Tablet) 1 Tab Tb, 1 TAB PO BID, #20 TAB Prov:CHRISTINA LI 07/12/22 Reported Medications Acetaminophen (Tylenol) 325 Mg Rc 12/28/12 Albuterol Sulfate (Ventolin Hfa) Aer 12/28/12 Current Medications Current Medications Medications (Trade) Dose Ordered Sig/Sergio Route PRN Reason Start Time Stop Time Status Last Admin Levetiracetam 100 ml @ 400 mls/hr BID IV 02/11/25 22:00 02/11/25 17:14 DC Ondansetron HCl (Zofran) 4 mg Q4HP PRN IV NAUSEA / VOMITING 02/11/25 17:15 Acetaminophen (Tylenol Tablet) 650 mg Q6HP PRN PO PAIN SCALE 1-3 OR TEMP>100.4 02/11/25 17:15 Levetiracetam 100 ml @ 400 mls/hr BID IV 02/11/25 22:00 02/11/25 22:17 Review of Systems As above, the other systems are negative Vital Signs Vital Signs Date Time Temp Pulse Resp B/P (MAP) Pulse Ox O2 Delivery O2 Flow Rate FiO2 02/11/25 20:00 98.5 111 16 114/69 (84) 97 98.5 02/11/25 18:15 Oxymizer 8 N/A Physical Exam GENERAL EXAM: General: the patient is well developed and nourished. No acute distress. RESPIRATORY: Normal respiratory effort with symmetrical lung expansion. Lungs clear to auscultation. CARDIOVASCULAR: Regular rate and rhythm with no murmurs. S1, S2. ABDOMEN: Soft, nontender, normal bowel sound s NEUROLOGICAL: MENTAL STATUS: Awake and alert. Oriented to person, place, time and general circumstances. Able to give personal history. SPEECH, LANGUAGE, HIGHER CORTICAL FUNCTION: no aphasia or dysathria. CRANIAL NERVES: #2: Intact visual mcclelland to confrontation. The optic discs were sharp. #3,4,6: Pupils are equal, round and reactive. EOMs full and conjugate. No nystagmus. #5: Facial sensation intact in all three divisions bilaterally. Mandibular strength intact. #7: Facial muscles symmetrical and strength intact. #8: Hearing grossly normal to voice. #9,10: Uvula and soft palate rise in the midline. Swallow and voice are normal. #11: Trapezius and sternomastoid strength intact bilaterally. #12: Tongue midline. No fasciculations or atrophy. SENSATION: Sensation to touch and pinprick is normal. MOTOR: Normal tone in the upper and lower extremity. Normal muscle bulk. No fasciculations. No abnormal movements or posturing. Muscle strength of the major groups in the upper extremities is 5/5. Muscle strength of the major groups in the lower extremities is 5/5. REFLEXES: Deep tendon reflexes normal and symmetrical. No pathological reflexes. CEREBELLAR/COORDINATION: Finger to nose and heel to maldonado are normal bilaterally. GAIT/STATION: deferred. Labs/Diagnostic Data Labs Test 02/11/25 19:10 02/11/25 18:25 02/11/25 17:50 02/11/25 15:30 Range/Units Urine Color Light-yellow Yellow Urine Clarity Turbid H Clear Urine pH 5.0 5.0-9.0 Urine Specific [place] 1.018 1.001-1.035 Urine Protein Negative Negative Urine Ketones 1+ H Negative Urine Blood Negative Negative /uL Urine Nitrite Negative Negative Urine Bilirubin Negative Negative Urine Urobilinogen Normal Negative mg/dL Urine Leukocyte Esterase Negative Negative /uL Urine RBC 1 0 - 4 /hpf Urine Microscopic WBC 1 0-5 /HPF Urine Squamous Epithelial Cells Few <5 /hpf Urine Amorphous Crystals Few None Seen /hpf Urine Bacteria None seen None Seen /hpf Urine Glucose Normal Normal mg/dL Troponin I High Sensitivity 12 </=34 ng/L Influenza Type A Antigen Negative Negative Influenza Type B Antigen Negative Negative SARS-CoV-2 Antigen (Rapid) Negative NEGATIVE White Blood Count 13.3 H 4.4-10.8 10^3/uL Red Blood Count 5.17 4.0-5.20 10^6/uL Hemoglobin 15.5 12.2-16.2 g/dL Hematocrit 45.5 36.0-46.0 % Mean Corpuscular Volume 88.1 80.0-100.0 fL Mean Corpuscular Hemoglobin 30.0 28.0-32.0 pg Mean Corpuscular Hemoglobin Concent 34.1 32.0-36.0 g/dL Red Cell Distribution Width 12.4 11.8-14.3 % Platelet Count 272 140-450 10^3/uL Mean Platelet Volume 9.0 6.9-10.8 fL Neutrophils (%) (Auto) 86.4 H 37.0-80.0 % Lymphocytes (%) (Auto) 7.8 L 10.0-50.0 % Monocytes (%) (Auto) 5.6 0.0-12.0 % Eosinophils (%) (Auto) 0.1 0.0-7.0 % Basophils (%) (Auto) 0.1 0.0-2.0 % Neutrophils # (Auto) 11.5 H 1.6-8.6 10 ^3/uL Lymphocytes # (Auto) 1.0 0.4-5.4 10 ^3/uL Monocytes # (Auto) 0.8 0-1.3 10 ^3/uL Eosinophils # (Auto) 0 0-0.8 10 ^3/uL Basophils # (Auto) 0 0-0.2 10 ^3/uL Nucleated Red Blood Cells 0.0 % Sodium Level 141 136-145 mmol/L Potassium Level 4.4 3.5-5.1 mmol/L Chloride Level 107 98-107 mmol/L Carbon Dioxide Level 25 20-31 mmol/L Anion Gap 9 5-15 Blood Urea Nitrogen 9 9-23 mg/dL Creatinine 0.72 0.550-1.02 mg/dL Glomerular Filtration Rate Calc 120 >90 mL/min BUN/Creatinine Ratio 12.5 10.0-20.0 Serum Glucose 96 74-106 mg/dL Lactic Acid Level 1.2 0.4-2.0 mmol/L Calcium Level 9.3 8.7-10.4 mg/dL Magnesium Level 2.0 1.6-2.6 mg/dL Total Bilirubin 0.6 0.2-1.0 mg/dL Aspartate Amino Transferase (AST) 30 13-40 U/L Alanine Aminotransferase (ALT) 41 H 7-40 U/L Alkaline Phosphatase 69 46-116 U/L Creatine Kinase 56 34-145 U/L Total Protein 6.5 5.7-8.2 g/dL Albumin 4.2 3.2-4.8 g/dL Assessment Seizure activity Grand mal seizure ? Psychogenic nonepileptic seizure Plan/Recommendation Monitoring Supportive treatment Telemetry Ativan for seizure breakthrough Keppra 500 mg b.i.d. Follow up with Dr.Nayyar SILVA on discharge Follow up with her family doctor RICARDO on discharge She does not drive Plan discussed with: Patient, Other HATTIE BORJA MD Feb 11, 2025 22:31
[2025-02-12] MEDS ORDERED: LORazepam 2MG/ML-1ML VIAL IV PRN (00:15)
[2025-02-12 01:00] VITALS: BP 112/54; PULSE 70; RESP 18; TEMP 98.7; O2SAT 98
[2025-02-12 05:05] LABS: Hematocrit 38.1 % (36.0-46.0); Hemoglobin 13.2 g/dL (12.2-16.2); Mean Corpuscular Hemoglobin 30.4 pg (28.0-32.0); Mean Corpuscular Volume 87.8 fL (80.0-100.0); Nucleated Red Blood Cells % 0.0 %
[2025-02-12 05:15] VITALS: BP 111/54; PULSE 73; RESP 18; TEMP 98.7; O2SAT 98
[2025-02-12 05:16] LABS: Alanine Aminotransferase 34 U/L (7-40); Albumin 3.7 g/dL (3.2-4.8); Alkaline Phosphatase 55 U/L (46-116); Anion Gap 10 (5-15); BUN/Creatinine Ratio 9.4 (10.0-20.0); Carbon Dioxide 21 mmol/L (20-31); Glucose 83 mg/dL (74-106); Potassium 3.6 mmol/L (3.5-5.1); Sodium 141 mmol/L (136-145); Total Protein 5.8 g/dL (5.7-8.2)
[2025-02-12 05:17] LABS: Bilirubin, Total 0.7 mg/dL (0.2-1.0)
[2025-02-12 05:21] LABS: Blood Urea Nitrogen 6 mg/dL (9-23); Calcium 8.5 mg/dL (8.7-10.4); Chloride 110 mmol/L (98-107)
[2025-02-12 10:00] VITALS: PULSE 87; RESP 21; O2SAT 98
[2025-02-12] MEDS: ACETAMINOPHEN 325 MG TAB PO PRN (10:31)
[2025-02-12] MEDS: levETIRAcetam 500 MG TAB PO SCH (10:31)
--- NOTE | 2025-02-12 13:46 | DVHPN2 ---
Subjective admitted for new seizures has been treated for hx of seizures. tired but now awake and alert Changes from previous H/P or p: No Changes Objective Vitals Vital Signs Date Time Temp Pulse Resp B/P (MAP) Pulse Ox O2 Delivery O2 Flow Rate FiO2 02/12/25 05:15 98.7 73 18 111/54 (73) 98 98.7 02/11/25 18:15 Oxymizer 8 N/A Intake/Output Intake and Output 02/12/25 07:00 Intake Total 1100 ml Output Total 500 ml Balance 600 ml Intake IV Total 1100 ml Output Urine Total 500 ml Exam HEENT: NC/AT CV: RRR Lung:CTAB abd: Soft non tender Medications Current Medications Medications Dose Ordered Sig/Sergio Route Start Time Stop Time Status Last Admin Dose Admin Ondansetron HCl 4 mg Q4HP PRN IV 02/11/25 17:15 Acetaminophen 650 mg Q6HP PRN PO 02/11/25 17:15 02/12/25 10:31 650 MG Levetiracetam 500 mg BID PO 02/12/25 10:00 02/12/25 10:31 500 MG Lorazepam 1 mg Q5MINP PRN IV 02/12/25 00:15 Laboratory Results Laboratory Tests 02/12/25 03:57 Chemistry Test 02/11/25 15:30 02/12/25 03:57 Albumin 4.2 g/dL (3.2-4.8) 3.7 g/dL (3.2-4.8) Calcium Level 9.3 mg/dL (8.7-10.4) 8.5 mg/dL (8.7-10.4) L Magnesium Level 2.0 mg/dL (1.6-2.6) Total Protein 6.5 g/dL (5.7-8.2) 5.8 g/dL (5.7-8.2) LFT Test 02/11/25 15:30 02/12/25 03:57 Alanine Aminotransferase (ALT) 41 U/L (7-40) H 34 U/L (7-40) Alkaline Phosphatase 69 U/L (46-116) 55 U/L (46-116) Aspartate Amino Transferase (AST) 30 U/L (13-40) 27 U/L (13-40) Total Bilirubin 0.6 mg/dL (0.2-1.0) 0.7 mg/dL (0.2-1.0) Urinalysis Test 02/11/25 19:10 Urine Color Light-yellow (Yellow) Urine Clarity Turbid (Clear) H Urine pH 5.0 (5.0-9.0) Urine Specific [place] 1.018 (1.001-1.035) Urine Protein Negative (Negative) Urine Ketones 1+ (Negative) H Urine Blood Negative /uL (Negative) Urine Nitrite Negative (Negative) Urine Bilirubin Negative (Negative) Urine Urobilinogen Normal mg/dL (Negative) Urine Leukocyte Esterase Negative /uL (Negative) Urine RBC 1 /hpf (0 - 4) Urine Microscopic WBC 1 /HPF (0-5) Urine Squamous Epithelial Cells Few /hpf (<5) Urine Amorphous Crystals Few /hpf (None Seen) Urine Bacteria None seen /hpf (None Seen) Urine Glucose Normal mg/dL (Normal) Labs and/or images reviewed: Labs reviewed by me, Image(s) reviewed by me Assessment/Plan Assessment/Plan 24 yo F with: #Recurrent seizures -admitted for evaluation -etiology: pseudoseizure vs epilepsy -neurology consulted. spoke with Dr. Lemus -Kieran 500mg BID -ativan PRN for breakthrough seizure #Marijuana use d/o -counseled Plan discussed with: Patient, Other (mom) My Orders Orders - AISSATOU ZENG MD Procedure Category Date Status Time Ketorolac Injection PHA 02/12/25 Transmitted (Toradol Injection) 13:45 Date of Service: Feb 12, 2025 Billing Provider: AISSATOU ZENG MD Common Visit Codes: [id number] INP/OBS CARE(MOD) AISSATOU ZENG MD Feb 12, 2025 13:46
[2025-02-12] MEDS: KETOROLAC TROMETH 30 MG/ML 1ML VIAL IV PRN (15:15)
--- NOTE | 2025-02-12 18:21 | DVHPN2 ---
Progress Note - Dictate Date Seen: Feb 12, 2025 Medical Necessity Reason Pt with a Central, PICC or Fol: No Subjective Ms. Pruitt is a 33 years old right-handed female with a history of seizure, anxiety, she was brought to the [facility] on 02/11/2025 with a chief complaint of seizure activity. I have seen and examined the patient, I have discussed with her nurse, I have talked to her mother, who has a lot of concerns questions Mother she has been a few video about her seizure, where she had shaking all over the body, but non showed symptoms in her face The case was discussed with Dr. Solis Urinalysis, 02/11/2025: Unremarkable WBC/HB/PLT/MCV, 02/11/2025: 13.3/15.5/272/88.1 CMP, 02/11/2025: Unremarkable Lactic acid, 02/11/2025: 1.2 CPK, 02/11/2025: 56 vital signs Vital Sign Date Time Temp Pulse Resp B/P (MAP) Pulse Ox O2 Delivery O2 Flow Rate FiO2 02/12/25 16:00 99.1 69 19 106/58 (74) 98 99.1 02/12/25 10:00 Room Air* 0 21 Total Intake and Output 02/11/25 02/11/25 02/12/25 15:00 23:00 07:00 Intake Total 1100 ml Output Total 500 ml Balance 600 ml medications Current Medications Medications Dose Ordered Sig/Sergio Route Start Time Stop Time Status Last Admin Dose Admin Ondansetron HCl 4 mg Q4HP PRN IV 02/11/25 17:15 Acetaminophen 650 mg Q6HP PRN PO 02/11/25 17:15 02/12/25 10:31 650 MG Levetiracetam 500 mg BID PO 02/12/25 10:00 02/12/25 10:31 500 MG Lorazepam 1 mg Q5MINP PRN IV 02/12/25 00:15 Ketorolac Tromethamine 15 mg Q6HPRN PRN IV 02/12/25 13:45 02/17/25 13:44 02/12/25 15:15 15 MG objective General: the patient is well developed and nourished. No acute distress. MENTAL STATUS: Awake and alert. Oriented to person, place, time and general circumstances. Able to give personal history. SPEECH, LANGUAGE, HIGHER CORTICAL FUNCTION: no aphasia or dysathria. CRANIAL NERVES: Pupils are equal, round and reactive. EOMs full and conjugate. No nystagmus. Facial sensation intact in all three divisions bilaterally. Mandibular strength intact. Facial muscles symmetrical and strength intact. Tongue midline. No fasciculations or atrophy. SENSATION: Sensation to touch and pinprick is normal. MOTOR: Normal tone in the upper and lower extremity. Normal muscle bulk. No fasciculations. No abnormal movements or posturing. Muscle strength of the major groups in the upper extremities is 5/5. Muscle strength of the major groups in the lower extremities is 5/5. REFLEXES: Deep tendon reflexes normal and symmetrical. No pathological reflexes. CEREBELLAR/COORDINATION: Finger to nose and heel to maldonado are normal bilaterally. GAIT/STATION: deferred. laboratory and microbiology Laboratory Tests 02/12/25 03:57 Test 02/12/25 03:57 Range/Units Serum Glucose 83 74-106 mg/dL Problem List Seizure activity Grand mal seizure ? Psychogenic nonepileptic seizure Assessment/Plan Monitoring Supportive treatment Telemetry Ativan for seizure breakthrough Keppra 500 mg b.i.d. Follow up with Dr.Nayyar SILVA on discharge Follow up with her family doctor RICARDO on discharge She does not drive This medical document was created using an electronic medical record system with [employer] dictation system. Although this document has been carefully reviewed, there may still be some phonetic and typographical errors. These areas are purely typographical due to imperfections of the software programs, and do not reflect any compromise in the patient's medical care. Prognosis poor Plan discussed with: Patient, Other Total Time (mins): 45 HATTIE BORJA MD Feb 12, 2025 18:21
[2025-02-12 19:30] VITALS: PULSE 85; RESP 21; O2SAT 97
[2025-02-12 23:22] VITALS: BP 117/69; PULSE 78; RESP 18; TEMP 98.3; O2SAT 97
[2025-02-13] VITALS (7 sets, daily range): BP systolic 117–133; BP diastolic 62–79; PULSE 70–97; RESP 18–20; TEMP 98.1–98.3; O2SAT 96–98
[2025-02-13 07:32] LABS: Hematocrit 35.9 % (36.0-46.0); Hemoglobin 12.4 g/dL (12.2-16.2); Mean Corpuscular Hemoglobin 30.2 pg (28.0-32.0); Mean Corpuscular Volume 87.4 fL (80.0-100.0); Nucleated Red Blood Cells % 0.1 %
[2025-02-13 07:43] LABS: Alanine Aminotransferase 32 U/L (7-40); Albumin 3.7 g/dL (3.2-4.8); Alkaline Phosphatase 50 U/L (46-116); Calcium 8.7 mg/dL (8.7-10.4); Carbon Dioxide 23 mmol/L (20-31); Glucose 82 mg/dL (74-106); Potassium 3.8 mmol/L (3.5-5.1)
[2025-02-13 07:44] LABS: Anion Gap 9 (5-15); Bilirubin, Total 0.9 mg/dL (0.2-1.0); Chloride 109 mmol/L (98-107); Sodium 141 mmol/L (136-145); Total Protein 6.0 g/dL (5.7-8.2)
[2025-02-13 07:45] LABS: BUN/Creatinine Ratio 7.6 (10.0-20.0); Blood Urea Nitrogen < 5 mg/dL (9-23)
[2025-02-13 11:00] LABS: Hepatitis B Surface Antigen Negative (Negative); Hepatitis C Antibody Negative (Negative)
[2025-02-13] MEDS ORDERED: KEP500T PO (14:19)
--- NOTE | 2025-02-13 16:21 | DVHDS2 ---
Discharge Summary Date of Admission Feb 11, 2025 at 17:03 Date of Discharge: Feb 13, 2025 Labs/Diagnostic Data: Laboratory Results Test 02/13/25 06:17 02/11/25 19:10 02/11/25 18:25 02/11/25 17:50 White Blood Count 4.4 10^3/uL (4.4-10.8) Red Blood Count 4.11 10^6/uL (4.0-5.20) Hemoglobin 12.4 g/dL (12.2-16.2) Hematocrit 35.9 % (36.0-46.0) Mean Corpuscular Volume 87.4 fL (80.0-100.0) Mean Corpuscular Hemoglobin 30.2 pg (28.0-32.0) Mean Corpuscular Hemoglobin Concent 34.6 g/dL (32.0-36.0) Red Cell Distribution Width 12.3 % (11.8-14.3) Platelet Count 204 10^3/uL (140-450) Mean Platelet Volume 8.6 fL (6.9-10.8) Neutrophils (%) (Auto) 53.4 % (37.0-80.0) Lymphocytes (%) (Auto) 32.9 % (10.0-50.0) Monocytes (%) (Auto) 11.2 % (0.0-12.0) Eosinophils (%) (Auto) 2.1 % (0.0-7.0) Basophils (%) (Auto) 0.4 % (0.0-2.0) Neutrophils # (Auto) 2.3 10 ^3/uL (1.6-8.6) Lymphocytes # (Auto) 1.4 10 ^3/uL (0.4-5.4) Monocytes # (Auto) 0.5 10 ^3/uL (0-1.3) Eosinophils # (Auto) 0.1 10 ^3/uL (0-0.8) Basophils # (Auto) 0 10 ^3/uL (0-0.2) Nucleated Red Blood Cells 0.1 % Sodium Level 141 mmol/L (136-145) Potassium Level 3.8 mmol/L (3.5-5.1) Chloride Level 109 mmol/L (98-107) Carbon Dioxide Level 23 mmol/L (20-31) Anion Gap 9 (5-15) Blood Urea Nitrogen < 5 mg/dL (9-23) Creatinine 0.66 mg/dL (0.550-1.02) Glomerular Filtration Rate Calc 126 mL/min (>90) BUN/Creatinine Ratio 7.6 (10.0-20.0) Serum Glucose 82 mg/dL (74-106) Calcium Level 8.7 mg/dL (8.7-10.4) Total Bilirubin 0.9 mg/dL (0.2-1.0) Aspartate Amino Transferase (AST) 26 U/L (13-40) Alanine Aminotransferase (ALT) 32 U/L (7-40) Alkaline Phosphatase 50 U/L (46-116) Total Protein 6.0 g/dL (5.7-8.2) Albumin 3.7 g/dL (3.2-4.8) Hepatitis B Surface Antigen Negative (Negative) Hepatitis C Antibody Negative (Negative) Urine Color Light-yellow (Yellow) Urine Clarity Turbid (Clear) Urine pH 5.0 (5.0-9.0) Urine Specific [place] 1.018 (1.001-1.035) Urine Protein Negative (Negative) Urine Ketones 1+ (Negative) Urine Blood Negative /uL (Negative) Urine Nitrite Negative (Negative) Urine Bilirubin Negative (Negative) Urine Urobilinogen Normal mg/dL (Negative) Urine Leukocyte Esterase Negative /uL (Negative) Urine RBC 1 /hpf (0 - 4) Urine Microscopic WBC 1 /HPF (0-5) Urine Squamous Epithelial Cells Few /hpf (<5) Urine Amorphous Crystals Few /hpf (None Seen) Urine Bacteria None seen /hpf (None Seen) Urine Glucose Normal mg/dL (Normal) Troponin I High Sensitivity 12 ng/L (</=34) Influenza Type A Antigen Negative (Negative) Influenza Type B Antigen Negative (Negative) SARS-CoV-2 Antigen (Rapid) Negative (NEGATIVE) Test 02/11/25 15:30 Lactic Acid Level 1.2 mmol/L (0.4-2.0) Magnesium Level 2.0 mg/dL (1.6-2.6) Creatine Kinase 56 U/L (34-145) Other Laboratory Tests 02/13/25 06:17 Brief Hx & Hospital Course: 24 F with prior sz history taking keppra, stopped in june and recently restarted for seizure activity. came in for breatkrhough seizure, seen by neuro, pseudoseizure vs epilepsy, to dc with keppra and follow up OP with neuro. EEG was done, pending read by neuro. stable to dc home Condition at Discharge: Good Final Diagnosis/Problems List epilepsy vs PNES breakthrough seizure marijuana use Discharge Disposition: Home Discharge Instruct/Medications Scheduled Levetiracetam (Keppra Tablet), 500 MG PO BID Phenazopyridine HCl (Phenazopyridine Hydrochlo), 200 MG PO TID Sulfamethoxazole W/Trimethopri (Bactrim Ds Tablet), 1 TAB PO BID Scheduled PRN Ondansetron Odt 4MG Tab (Zofran Po), 4 MG PO Q6HP PRN Miscellaneous Medications Acetaminophen (Tylenol), (Reported) Albuterol Sulfate (Ventolin Hfa), (Reported) Discharge Statement: "Patient was advised to return to the ER or call 911 if any headaches, dizziness, shortness of breath, chest pain, abdominal pain, bleeding, fevers, or worsening of medical condition. Patient was counseled about treatment plan, medications, possible side effects, patientverbalized understanding. All questions were answered to the best of my ability. This discharge took greater then 30 minutes in planning, reviewing documentation, counseling the patient, and discussing with other team members." ASSESSMENT ASSESSMENT Assessment Date of Service: Feb 13, 2025 Billing Provider: MORGAN TELLO MD Common Visit Codes: [id number]/OBS DISCH DAY >30min MORGAN TELLO MD Feb 13, 2025 16:21
--- NOTE | 2025-02-15 14:26 | DVHEEG2 ---
Neurology EEG Procedural Note Procedural Note EXAM DATE: 02/13/2025 REFERRING DOCTOR: Dr. Borja TECHNIQUE: Eighteen channels of EEG, 2 channels of EOG, and 1 channel of EKG were recorded using the International 10/20 system. CLINICAL DATA: The patient was referred for an EEG evaluation for the evidence of seizure disorder. MEDICATIONS: See the chart BACKGROUND ACTIVITY: There was diffuse low amplitude rhythmic beta activity over both hemispheres, intermixed with this was small amount of theta waveforms, there was no well regulated rhythmic alpha activity in both posterior quadrants ACTIVATION: Hyperventilation: Not done Photic Stimulation: Not done Sleep: Noted by the coil repair technician. EEG showed high-amplitude delta waveform, and diffuse low theta activities IMPRESSION: This is a essentially normal EEG,. No focal, lateralized, or epileptiform features are noted. If clinically indicated to rule out a seizure disorder, recommend repeat EEG with sleep deprivation. The diffuse rhythmic beta activity is likely secondary to benzodiazepine medication effects The EKG channel showed a regular heart rate of 79 per minute. [place] [address] HATTIE BORJA MD Feb 15, 2025 14:26
== END 2025-02-13 18:15 | disposition home or self-care (01) | DRG 53 ==
LOC: ER 15:10 → EDBD 15:10 → OVERFLOW 17:03 → WEST WING 02-12 23:20
PROVIDERS: ADMIT Internal Medicine; ATTEND Internal Medicine
DX: G40.909 Epilepsy, unspecified, not intractable, without status epilepticus (principal); J96.01 Acute respiratory failure with hypoxia; D72.829 Elevated white blood cell count, unspecified; F12.90 Cannabis use, unspecified, uncomplicated; M54.50 Low back pain, unspecified; F41.9 Anxiety disorder, unspecified; Z91.148 Patient's other noncompliance with medication regimen for other reason; Z82.49 Family history of ischemic heart disease and other diseases of the circulatory system; Z79.899 Other long term (current) drug therapy
CPT/HCPCS: 36415; 71045; 80053; 81001; 82550; 83605; 83735; 84484; 85025; 86803; 87340; 87426; 87804; 95819; 96365; 96372; G0378; J1885